=== PATIENT | male | born 1955 | race Two or more races ===

== ENCOUNTER 2017-06-09 13:35 | Outpatient (CLI) | payer MEDICAID ==
[2017-06-09 14:04] LABS: BASOPHILS # (AUTO) 0.1 10^3/uL (0.0-0.1); EOSINOPHILS # (AUTO) 0.1 10^3/uL (0.0-0.7); EOSINOPHILS % (AUTO) 1.1 %; HGB - HEMOGLOBIN 17.1 g/dL (14.0-18.0); LYMPHOCYTES # (AUTO) 3.1 10^3/uL (1.5-3.5); LYMPHOCYTES % (AUTO) 30.1 %; MEAN CORPUSCULAR HEMOGLOBIN 33.2 pg (27.0-31.0); MEAN CORPUSCULAR HGB CONC 34.4 g/dL (32.0-36.0); MEAN CORPUSCULAR VOLUME 96.5 fL (80.0-94.0); MEAN PLATELET VOLUME 7.4 fL (7.4-11.4); MONOCYTES # (AUTO) 0.6 10^3/uL (0.0-1.0); NEUTROPHILS # (AUTO) 6.4 10^3/uL (1.5-6.6); NEUTROPHILS % (AUTO) 61.8 %; PLT - PLATELET COUNT 229 10^3/uL (130-450); RED BLOOD COUNT 5.14 10^6/uL (4.70-6.10); RED CELL DISTRIBUTION WIDTH 13.9 % (12.0-15.0); WHITE BLOOD COUNT 10.3 x10^3/uL (4.8-10.8)
[2017-06-09 14:22] LABS: ALBUMIN 4.4 g/dL (3.2-5.5); ALBUMIN/GLOBULIN RATIO 1.2 (1.0-2.2); ALKALINE PHOSPHATASE 60 IU/L (42-121); ALT ALANINE AMINOTRANSFERASE 29 IU/L (10-60); AST ASPARTATE AMINOTRANSFERASE 21 IU/L (10-42); BILIRUBIN,TOTAL 1.8 mg/dL (0.2-1.0); BUN - BLOOD UREA NITROGEN 16 mg/dL (6-20); CALCIUM 9.3 mg/dL (8.5-10.3); CARBON DIOXIDE - CO2 23 mmol/L (21-32); CHLORIDE 103 mmol/L (101-111); CHOL/HDL RATIO 3.9 (<5.0); CHOLESTEROL 191 mg/dL; CREATININE 0.8 mg/dL (0.6-1.2); GFR - MDRD 97 (>89); GLUCOSE 112 mg/dL (70-100); HDL CHOLESTEROL 49 mg/dL; LDL CHOLESTEROL,CALCULATED 128 mg/dL; LDL/HDL RATIO 2.6 (<3.6); SODIUM 139 mmol/L (135-145); VLDL CHOLESTEROL 14 mg/dL
[2017-06-09 14:28] LABS: HB2 TOTAL 18.7 g/dL; HEMOGLOBIN A1C 0.7 g/dL; HEMOGLOBIN A1C % 5.6 % (4.6-6.2)
[2017-06-09] MEDS ORDERED: IOPAMIDOL-300 100 ML VIAL ONE (14:49)
[2017-06-09] MEDS ORDERED: IOPAMIDOL-300 100 ML VIAL IVP ONE (15:17)
--- NOTE | 2017-06-14 11:27 | CT Report ---
DATE OF SERVICE: 06/09/2017 CT NECK WITH CONTRAST: 06/09/2017 CLINICAL INDICATION: Glossal cancer TECHNIQUE: Axial CT images of the neck were obtained with 100 mL Isovue 300 intravenously. In accordance with CT protocol optimization, one or more of the following dose reduction techniques w ere utilized for this exam: Automated exposure control, adjustment of mA and/or KV based on patient size , or use of iterative reconstructive technique. COMPARISON: No previous exam is available for comparison. FINDINGS: The vascular structures enhance normally. There are small anterior triangle lymph nodes p resent, measuring up to 5 mm on the right. The salivary glands and thyroid gland appear unremarkable. The v isualized orbital contents and paranasal sinuses are unremarkable. Osseous structures demonstrate degenerative changes. IMPRESSION: Small anterior triangle lymph nodes, measuring up to 6 mm in short axis. TD: 06/10/2017 20:48
--- NOTE | 2017-06-14 11:28 | CT Report ---
DATE OF SERVICE: 06/09/2017 CT CHEST WITH CONTRAST: 06/09/2017 CLINICAL INDICATION: Glossal cancer TECHNIQUE: Axial CT images of the chest were obtained with 100 mL Isovue 300 intravenously. In accordance with CT protocol optimization, one or more of the following dose reduction techniques w ere utilized for this exam: Automated exposure control, adjustment of mA and/or KV based on patient size , or use of iterative reconstructive technique. COMPARISON: No previous CT is available for comparison. FINDINGS: The heart and great vessels demonstrate atherosclerotic calcification. No hilar or medias tinal lymphadenopathy is present. No axillary adenopathy is seen. The lungs demonstrate emphysema and fib rosis. No suspicious pulmonary nodule or mass lesion is appreciated. The limited evaluation of upper abdomi nal structures demonstrates normal adrenal glands. There are multiple hypodense lesions in the liver, wh ich cannot be further characterized on this examination. Cholelithiasis is incidentally noted. IMPRESSION: Emphysema and fibrosis. Multiple hypodense liver nodules, which cannot be further marco cterized on this phase of contrast enhancement. TD: 06/10/2017 20:52
== END 2017-06-09 13:36 | disposition home or self-care (01) ==
LOC: DI 13:35
PROVIDERS: ATTEND Nurse Practitioner Gerontology
DX: C02.9 Malignant neoplasm of tongue, unspecified (principal); Z13.9 Encounter for screening, unspecified; J43.9 Emphysema, unspecified; J84.10 Pulmonary fibrosis, unspecified; K76.9 Liver disease, unspecified
CPT/HCPCS: 36415; 70491; 71260; 80053; 80061; 83036; 84443; 85025; Q9967

== ENCOUNTER 2017-07-12 16:15 | Outpatient (CLI) | payer MEDICAID | END 2017-07-12 16:30 | disposition home or self-care (01) | LOC: RT.N 16:15 | PROVIDERS: ATTEND Nurse Practitioner Gerontology | DX: Z01.810 Encounter for preprocedural cardiovascular examination (principal) | CPT/HCPCS: 93005 ==

== ENCOUNTER 2017-07-15 13:22 | Outpatient (CLI) | payer MEDICAID ==
[2017-07-15 18:55] LABS: BASOPHILS # (AUTO) 0.1 10^3/uL (0.0-0.1); BASOPHILS % (AUTO) 0.8 %; EOSINOPHILS # (AUTO) 0.1 10^3/uL (0.0-0.7); EOSINOPHILS % (AUTO) 0.9 %; HGB - HEMOGLOBIN 16.4 g/dL (14.0-18.0); LYMPHOCYTES # (AUTO) 2.6 10^3/uL (1.5-3.5); LYMPHOCYTES % (AUTO) 29.6 %; MEAN CORPUSCULAR HEMOGLOBIN 32.9 pg (27.0-31.0); MEAN CORPUSCULAR HGB CONC 33.2 g/dL (32.0-36.0); MEAN CORPUSCULAR VOLUME 99.1 fL (80.0-94.0); MEAN PLATELET VOLUME 8.5 fL (7.4-11.4); MONOCYTES # (AUTO) 0.6 10^3/uL (0.0-1.0); MONOCYTES % (AUTO) 6.6 %; NEUTROPHILS # (AUTO) 5.5 10^3/uL (1.5-6.6); NEUTROPHILS % (AUTO) 62.1 %; PLT - PLATELET COUNT 227 10^3/uL (130-450); RED BLOOD COUNT 4.97 10^6/uL (4.70-6.10); RED CELL DISTRIBUTION WIDTH 13.9 % (12.0-15.0); WHITE BLOOD COUNT 8.8 x10^3/uL (4.8-10.8)
[2017-07-15 19:03] LABS: ALBUMIN 4.1 g/dL (3.2-5.5); ALBUMIN/GLOBULIN RATIO 1.2 (1.0-2.2); BILIRUBIN,TOTAL 1.6 mg/dL (0.2-1.0); CALCIUM 8.7 mg/dL (8.5-10.3); CREATININE 0.8 mg/dL (0.6-1.2); TOTAL PROTEIN 7.5 g/dL (6.7-8.2)
[2017-07-15 19:10] LABS: INR 0.9 (0.8-1.2); PT - PROTHROMBIN TIME 10.6 secs (9.9-12.6)
== END 2017-07-15 13:23 | disposition home or self-care (01) ==
LOC: LAB.N 13:22
PROVIDERS: ATTEND Nurse Practitioner Gerontology
DX: Z13.9 Encounter for screening, unspecified (principal)
CPT/HCPCS: 36415; 80053; 85025; 85610; 85730

== ENCOUNTER 2018-11-11 12:50 | Outpatient (CLI) | payer MEDICARE, MEDICAID | END 2018-11-11 12:51 | disposition home or self-care (01) | LOC: RT 12:50 | PROVIDERS: ATTEND Nurse Practitioner Gerontology | DX: R06.02 Shortness of breath (principal); F17.200 Nicotine dependence, unspecified, uncomplicated | CPT/HCPCS: 94010 ==

== ENCOUNTER 2018-11-20 10:33 | Outpatient (CLI) | payer MEDICAID, MEDICARE ==
--- NOTE | 2018-11-20 12:50 | CT Report ---
Reason: PERSONAL HISTORY OF NICOTINE DEPENDENCE Procedure Date: 11/20/2018 Accession Number: [id number] / [id number] Procedure: CT - Low Dose Lung Cancer Screen CPT Code: FULL RESULT: EXAM CT LUNG SCREEN EXAM DATE: 11/20/2018 10:53 AM. HISTORY: 63-year-old patient with greater than [id number] smoking history. Currently smoking: No. Years since quittin. COMPARISON: NECK SOFT TISSUE W/ 06/09/2017 2:56 PM. TECHNIQUE: CT examination of the entire thorax without contrast was performed using low-dose technique. Thin section coronal, axial, sagittal and MIP axial images were obtained. In accordance with CT protocol optimization, one or more of the following dose reduction techniques were utilized for this exam: automated exposure control, adjustment of mA and/or KV based on patient size, or use of iterative reconstructive technique. FINDINGS: Nodules: Right upper lobe: None. Right middle lobe: None. Right lower lobe: None. Left upper lobe: None. Left lower lobe: None. Emphysema: None. Pleura: Unremarkable. Aorta: Unremarkable. Mediastinum: Unremarkable. Coronary calcifications: None. Other pulmonary findings: Mild bullous emphysema. Scattered lateral subpleural septal scarring. Other extrapulmonary findings: None. IMPRESSION: Lung-RADS ASSESSMENT CATEGORY: 1 - negative Probability of malignancy: N/A RECOMMENDATION: Recommended annual follow up based on Lung-RADS guidelines. [facility]
== END 2018-11-20 10:34 | disposition home or self-care (01) ==
LOC: DI 10:33
PROVIDERS: ATTEND Nurse Practitioner Gerontology
DX: Z12.2 Encounter for screening for malignant neoplasm of respiratory organs (principal); J43.9 Emphysema, unspecified; Z87.891 Personal history of nicotine dependence